=== PATIENT | male | born 1970 ===

== ENCOUNTER 2022-04-25 19:56 | Emergency (ER) | payer MEDICAID ==
[2022-04-25 21:02] LABS: ESTIMATED GFR 104 mL/min (>60); TROPONIN I HIGH SENSITIVITY 7.3 pg/mL (<=60.3)
== END 2022-04-25 21:59 ==
LOC: JP.ED 19:56
DX: R55 Syncope and collapse (principal); Z72.0 Tobacco use
CPT/HCPCS: 36415; 70450; 80053; 83605; 84484; 85025; 93005; 93010; 99283; 99285